=== PATIENT | female | born 1950 | race Caucasian/White ===

== ENCOUNTER 2022-03-02 12:47 | Emergency (ER) | payer OTHER ==
[2022-03-02] MEDS ORDERED: LOSARTAN POTASS50 MG PO (13:34)
[2022-03-02] MEDS ORDERED: NAPROSYN250 MG PO (15:38)
== END 2022-03-02 15:52 | disposition home or self-care (01) ==
LOC: FER 12:47
DX: M25.562 Pain in left knee (principal); I10 Essential (primary) hypertension; X50.1XXA Overexertion from prolonged static or awkward postures, initial encounter; Y92.009 Unspecified place in unspecified non-institutional (private) residence as the place of occurrence of the external cause
CPT/HCPCS: 73564